=== PATIENT | female | born 1975 | race Caucasian/White ===

== ENCOUNTER 2022-06-08 11:44 | Emergency (ER) | payer OTHER, SELFPAY ==
[2022-06-08 11:56] VITALS: BP 152/99; PULSE 72; RESP 16; TEMP 35.8; O2SAT 98
--- NOTE | 2022-06-08 12:09 | ED.EYEPROB ---
HPI - Eye Problem General Chief complaint: Eye Problems Stated complaint: right eye swelling/redness Time Seen by Provider: 06/08/22 12:20 Source: patient and RN notes reviewed Mode of arrival: ambulatory Limitations: no limitations History of Present Illness HPI Narrative: 39-year-old female presents concern for eye redness swelling. Reports she earlier this week she thought she had a stye on her right lower lid, she is using warm compresses. She reports since then she has had increasing redness, swelling, cloudy drainage from the eye. She reports her eye was crusted shut when she woke up this morning. She denies vision changes, eye pain MD chief complaint: eye redness Related Data Home Medications Medication Instructions Recorded Confirmed cariprazine 3 mg capsule (Vraylar) 3 mg PO HS 06/08/22 06/08/22 hydrochlorothiazide 12.5 mg capsule 12.5 mg PO DAILY 06/08/22 06/08/22 lamotrigine 200 mg tablet 200 mg PO BID 06/08/22 06/08/22 levothyroxine 175 mcg tablet 175 mcg PO DAILY 06/08/22 06/08/22 venlafaxine 150 mg 150 mg PO DAILY 06/08/22 06/08/22 capsule,extended release 24 hr Allergies Allergy/AdvReac Type Severity Reaction Status Date / Time No Known Allergies Allergy Verified 06/08/22 12:15 Review of Systems Review of Systems: CONSTITUTIONAL: Denies malaise, chills, sweats, or fever. EYES: Denies visual changes. Reports right eye redness, irritation, discharge. ENT: Denies rhinorrhea, congestion, sinus pain, otalgia or sore throat. SKIN: Denies rash or itching. NEUROLOGIC: Denies numbness, weakness, or headache. PSYCHIATRIC: Denies anxiety or depression. All systems reviewed & are unremarkable except as noted in HPI and below PMFSH Comments At time of signature, agree with nursing past medical, surgical, social and family history. There is no relevant family history pertinent to the presenting complaint Exam Narrative: GENERAL: Well-appearing, well-nourished, and in no acute distress. HEAD: Normocephalic, atraumatic. EYES: PERRLA, left conjunctivae and sclera clear, and EOMI. No nystagmus. Right sclera and conjunctivae injected with hordeolum on the right lower lid. No periorbital edema noted ENT: Nares clear, turbinates pink, no rhinorrhea or epistaxis. Mucous membranes moist. TM pearly dasilva with sharp light reflex bilaterally; no tragal tenderness. NECK: Supple. CHEST: No respiratory distress. Speaks in full sentences. HEART: Regular rate and rhythm. SKIN: Warm, dry, no visible rash. NEURO: Alert and oriented x3. PSYCH: Normal mood and affect Course Course Emergency Course: Patient is aware of diagnosis, understands and agrees to treatment plan. Anticipatory guidance given. Patient agrees to follow-up as directed and is aware of reasons to seek care at the emergency department. Portions of this record may have been created with voice recognition software Level of Care: Express Care Visit Vital Signs Vital signs: Vital Signs Temperature 96.5 F L 06/08/22 11:56 Pulse Rate 72 06/08/22 11:56 Respiratory Rate 16 06/08/22 11:56 Blood Pressure 152/99 H 06/08/22 11:56 Pulse Oximetry 98 06/08/22 11:56 Oxygen Delivery Room Air 06/08/22 11:56 Temperature 96.5 F L 06/08/22 11:56 Pulse Rate 72 06/08/22 11:56 Respiratory Rate 16 06/08/22 11:56 Blood Pressure 152/99 H 06/08/22 11:56 Pulse Oximetry 98 06/08/22 11:56 Oxygen Delivery Room Air 06/08/22 11:56 Reviewed. MDM - Eye Problem MDM Narrative Medical decision making narrative: Consideration of the following conditions may be warranted for the presenting problem, they are not final diagnoses: Bacterial conjunctivitis, allergic conjunctivitis, viral conjunctivitis, foreign body, blepharitis, chalazion, hordeolum, corneal abrasion, preseptal cellulitis, orbital cellulitis. No evidence of proptosis, ophthalmoplegia, vision loss, pain with eye movement. Exam findings show no acute concerns or changes; patient is
== END 2022-06-08 12:38 | disposition home or self-care (01) ==
PROVIDERS: Emergency Provider Nurse Practitioner
DX: H10.9 Unspecified conjunctivitis (principal); H00.012 Hordeolum externum right lower eyelid
CPT/HCPCS: 99203; G0463